=== PATIENT | male | born 1975 | race Hispanic/Latino ===

== ENCOUNTER 2021-10-20 14:28 | Emergency (ER) | payer OTHER ==
[~2021-10-20] VITALS: Ht 170.2 cm; Wt 83.9 kg
[2021-10-20] MEDS ORDERED: Morphine 4mg INJECTION 4 MG/ML INJ IM ONE (17:15)
[2021-10-20] MEDS ORDERED: CEFDINIR 300 MG CAP PO SCH (17:45)
[2021-10-20 18:21] LABS: CLARITY,URINE SL CLOUDY (CLEAR); COLOR,URINE STRAW (YELLOW); KETONES,URINE NEGATIVE (NEGATIVE); LEUKOCYTE ESTERASE ,URINE MODERATE (NEGATIVE); NITRITE,URINE POSITIVE (NEGATIVE); PROTEIN,URINE DIPSTICK 1+ (NEGATIVE); URINE UROBILINOGEN 0.2 mg/dL (0.2 - 1)
[2021-10-20 18:32] LABS: BACTERIA,URINE MODERATE /HPF; WBC,URINE (MAN) 21-50 /HPF (0-5)
[2021-10-20 19:53] VITALS: BP 132/76
== END 2021-10-20 19:55 | disposition home or self-care (01) ==
LOC: ER 15:22
DX: R33.9 Retention of urine, unspecified (principal); T83.518A Infection and inflammatory reaction due to other urinary catheter, initial encounter; L89.892 Pressure ulcer of other site, stage 2; G83.89 Other specified paralytic syndromes
CPT/HCPCS: 51702; 81001; 87086; 87186; 99283; J2270; 51700; 99282

== ENCOUNTER 2024-08-13 10:16 | Inpatient (IN) | payer OTHER ==
[~2024-08-13] VITALS: Ht 172.7 cm; Wt 68.3 kg
[2024-08-13] VITALS (7 sets, daily range): BP systolic 119–144; BP diastolic 76–84; PULSE 86–95; RESP 16–24; TEMP 97.3–98.7; O2SAT 95–100
[~2024-08-13 10:16] MED LIST: CLINDAMYCIN HC150 MG PO
[2024-08-13 11:31] LABS: BASOPHILS % 0.5 % (0.0-1.0); EOSINOPHILS # (AUTO) 0.5 (0.0-0.4); EOSINOPHILS % 6.1 % (0.0-6.0); HEMATOCRIT 29.3 % (38.2-49.6); HEMOGLOBIN 8.6 g/dL (14.0-18.0); LYMPHOCYTES # (AUTO) 0.9 (1.0-3.2); LYMPHOCYTES % 10.8 % (18.0-39.1); MEAN CORPUSCULAR HEMOGLOBIN 24.2 pg (28-32); MEAN CORPUSCULAR HGB CONC 29.4 g/dL (31-35); MEAN CORPUSCULAR VOLUME 82.3 fL (81-99); MONOCYTES # (AUTO) 0.5 (0.2-0.8); MONOCYTES % 6.1 % (4.4-11.3); NEUTROPHILS # (AUTO) 6.4 (2.1-6.9); NEUTROPHILS % 76.3 % (38.7-80.0); PLATELET COUNT 210 x10e3/uL (140-360); RED BLOOD COUNT 3.56 x10e6/uL (4.3-5.7); RED CELL DISTRIBUTION WIDTH 19.3 % (11.7-14.4); WHITE BLOOD COUNT 8.39 x10e3/uL (4.8-10.8)
[2024-08-13 11:47] LABS: PARTIAL THROMBOPLASTIN TIME 33.6 seconds (23.8-35.5)
[2024-08-13 11:50] LABS: INR 1.09; PROTHROMBIN TIME 14.8 seconds (11.9-14.5)
[2024-08-13 11:58] LABS: ACETAMINOPHEN < 3.0 ug/mL (10-30); ALBUMIN/GLOBULIN RATIO 0.7 (0.8-2.0); ANION GAP 15.3 mmol/L (8-16); BILIRUBIN,TOTAL 1.4 mg/dL (0.2-1.2); CALCIUM 8.3 mg/dL (8.4-10.2); CREATININE, SERUM 0.9 mg/dL (0.72-1.25); ETHANOL < 10.0 mg/dL (0.0-10.0); POTASSIUM 4.3 mmol/L (3.5-5.1); SALICYLATE < 5.0 mg/dL (0-30); TOTAL PROTEIN 7.6 g/dL (6.5-8.1)
[2024-08-13 12:04] LABS: TROPONIN I 0.026 ng/mL (0-0.300)
[2024-08-13 12:19] LABS: BILIRUBIN,URINE NEGATIVE (NEGATIVE); CLARITY,URINE CLEAR (CLEAR); COLOR,URINE YELLOW (YELLOW); GLUCOSE, URINE NEGATIVE (NEGATIVE); KETONES,URINE NEGATIVE (NEGATIVE); LEUKOCYTE ESTERASE ,URINE TRACE (NEGATIVE); NITRITE,URINE NEGATIVE (NEGATIVE); PH,URINE 6 (5 - 7); PROTEIN,URINE DIPSTICK NEGATIVE (NEGATIVE); URINE UROBILINOGEN 0.2 mg/dL (0.2 - 1)
[2024-08-13 12:31] LABS: AMPHETAMINES SCREEN,URINE POSITIVE (NEGATIVE); BENZODIAZEPINES SCREEN,URINE POSITIVE (NEGATIVE); OPIATES SCREEN,URINE NEGATIVE (NEGATIVE); PHENCYCLIDINE SCREEN,URINE NEGATIVE (NEGATIVE)
[2024-08-13 12:32] LABS: CANNABINOIDS SCREEN,URINE NEGATIVE (NEGATIVE); COCAINE SCREEN,URINE POSITIVE (NEGATIVE); CORONAVIRUS COVID-19 AG NEGATIVE (NEGATIVE); INFLUENZA A AG NEGATIVE (NEGATIVE); INFLUENZA B AG NEGATIVE (NEGATIVE); METHADONE SCREEN, URINE NEGATIVE (NEGATIVE)
[2024-08-13 12:33] LABS: BACTERIA,URINE RARE /HPF; EPITHELIAL CELLS,URINE RARE /LPF; RBC,URINE 0-5 /HPF (0-5); WBC,URINE (MAN) 0-5 /HPF (0-5)
[2024-08-13] MEDS: Vancomycin IV 1 GM in SODIUM CHLORIDE 0.9% 250ML 250 ML IV ONE (14:17)
[2024-08-13] MEDS ORDERED: PIPERACILLIN/TAZOBACTAM 3.375 GM VIAL ONE (14:23)
[2024-08-13] MEDS: SODIUM CHLORIDE 0.9% 500ML 500 ML IV ONE (14:36)
[2024-08-13] MEDS: ONDANSETRON HCL INJ 2MG/ML 2ML 2 MG/ML VIAL IV PRN (14:36)
[2024-08-13] MEDS: KETOROLAC TROMETHAMINE 30 MG/ML VIAL IV STA (17:56)
[2024-08-13] MEDS: Morphine 4mg INJECTION 4 MG/ML INJ IV PRN (22:32)
[2024-08-14] VITALS (9 sets, daily range): BP systolic 102–141; BP diastolic 76–93; PULSE 89–98; RESP 17–22; TEMP 97.5–98.1; O2SAT 95–100
[2024-08-14] MEDS: VANCOMYCIN 1.25GM/250 ML (PEG) 250 ML IV SCH (02:46)
[2024-08-14 04:38] LABS: BASOPHILS % 0.3 % (0.0-1.0); EOSINOPHILS # (AUTO) 0.4 (0.0-0.4); EOSINOPHILS % 5.6 % (0.0-6.0); HEMATOCRIT 23.2 % (38.2-49.6); LYMPHOCYTES # (AUTO) 1.5 (1.0-3.2); MEAN CORPUSCULAR HEMOGLOBIN 24.6 pg (28-32); MEAN CORPUSCULAR HGB CONC 29.3 g/dL (31-35); MEAN CORPUSCULAR VOLUME 84.1 fL (81-99); MONOCYTES # (AUTO) 0.3 (0.2-0.8); MONOCYTES % 4.2 % (4.4-11.3); NEUTROPHILS # (AUTO) 4.8 (2.1-6.9); NEUTROPHILS % 68.5 % (38.7-80.0); PLATELET COUNT 133 x10e3/uL (140-360); RED BLOOD COUNT 2.76 x10e6/uL (4.3-5.7); WHITE BLOOD COUNT 6.95 x10e3/uL (4.8-10.8)
[2024-08-14 04:59] LABS: MAGNESIUM 1.6 MG/DL (1.3-2.1)
[2024-08-14 05:01] LABS: ALBUMIN 2.3 g/dL (3.5-5.0); ALBUMIN/GLOBULIN RATIO 0.7 (0.8-2.0); ANION GAP 10.7 mmol/L (8-16); CREATININE, SERUM 0.8 mg/dL (0.72-1.25); POTASSIUM 3.7 mmol/L (3.5-5.1); TOTAL PROTEIN 5.6 g/dL (6.5-8.1)
[2024-08-14 05:13] LABS: HEMOGLOBIN 6.8 g/dL (14.0-18.0)
[2024-08-14 05:20] LABS: CALCIUM 6.6 mg/dL (8.4-10.2)
[2024-08-14 05:21] LABS: FERRITIN 28.18 ng/mL (21.81-274.66)
[2024-08-14 06:00] LABS: TROPONIN I 0.022 ng/mL (0-0.300)
[2024-08-14 07:25] LABS: BASOPHILS % 0.4 % (0.0-1.0); EOSINOPHILS # (AUTO) 0.4 (0.0-0.4); EOSINOPHILS % 5.5 % (0.0-6.0); HEMATOCRIT 23.6 % (38.2-49.6); LYMPHOCYTES # (AUTO) 0.9 (1.0-3.2); LYMPHOCYTES % 12.4 % (18.0-39.1); MEAN CORPUSCULAR HEMOGLOBIN 24.3 pg (28-32); MEAN CORPUSCULAR HGB CONC 29.2 g/dL (31-35); MEAN CORPUSCULAR VOLUME 83.1 fL (81-99); MONOCYTES # (AUTO) 0.4 (0.2-0.8); MONOCYTES % 5.8 % (4.4-11.3); NEUTROPHILS # (AUTO) 5.3 (2.1-6.9); NEUTROPHILS % 75.3 % (38.7-80.0); PLATELET COUNT 149 x10e3/uL (140-360); RED BLOOD COUNT 2.84 x10e6/uL (4.3-5.7); WHITE BLOOD COUNT 7.04 x10e3/uL (4.8-10.8)
[2024-08-14 07:39] LABS: HEMOGLOBIN 6.9 g/dL (14.0-18.0)
[2024-08-14] MEDS: CALCIUM GLUC 1 G/50 ML NACL 50 ML IV ONE (08:38)
[2024-08-14 09:14] LABS: EOSINOPHILS % (MANUAL) 3 % (0-7); LYMPHOCYTES % (MANUAL) 8 % (19-48); MONOCYTES % (MANUAL) 4 % (3.4-9.0); NEUTROPHILS % (MANUAL) 85 % (40-74)
[2024-08-14 09:15] LABS: ANISOCYTOSIS MODERATE; HYPOCHROMASIA MODERATE; OVALOCYTES FEW; PLATELET ESTIMATE SLIGHTLY DECREASED; PLATELET MORPHOLOGY COMMENT NORMAL
[2024-08-14 09:16] LABS: MICROCYTOSIS MODERATE; RBC MORPHOLOGY COMMENT ABNORMAL
[2024-08-14] MEDS: ALBUTEROL/IPRATROPIUM 3 ML NEB NEB PRN (10:27)
[2024-08-14] MEDS: KETOROLAC TROMETHAMINE 30 MG/ML VIAL IV PRN (11:57)
[2024-08-14] MEDS: SODIUM CHLORIDE 0.9% 250ML 250 ML ONE (12:07)
[2024-08-14 14:27] LABS: TROPONIN I 0.019 ng/mL (0-0.300)
[2024-08-14] MEDS ORDERED: BISACODYL 10 MG SUPP PR PRN (19:45)
[2024-08-14] MEDS ORDERED: POLYETHYLENE GLYCOL 3350 17 GM PACK PO PRN (19:45)
[2024-08-14] MEDS: Vancomycin IV 1 GM in SODIUM CHLORIDE 0.9% 250ML 250 ML IV SCH (20:20)
[2024-08-14] MEDS: FUROSEMIDE INJ 10 MG/ML 4 ML VIAL IV ONE (23:14)
[2024-08-14] MEDS: GUAIFENESIN/DEXTROMETHORPHAN LIQD 5 ML UDC NG PRN (23:14)
[2024-08-14] MEDS: WATER STERILE 10 ML VIAL IV ONE (23:14)
[2024-08-14] MEDS: ALTEPLASE RECOMBINANT 2 MG/2 ML VIAL IV PRN (23:14)
[2024-08-15] VITALS (11 sets, daily range): BP systolic 112–126; BP diastolic 70–96; PULSE 87–97; RESP 18–22; TEMP 97.5–98.2; O2SAT 96–100
[2024-08-15 06:06] LABS: BASOPHILS % 0.7 % (0.0-1.0); EOSINOPHILS # (AUTO) 0.5 (0.0-0.4); EOSINOPHILS % 8.7 % (0.0-6.0); HEMATOCRIT 26.4 % (38.2-49.6); HEMOGLOBIN 7.8 g/dL (14.0-18.0); LYMPHOCYTES # (AUTO) 0.8 (1.0-3.2); MEAN CORPUSCULAR HEMOGLOBIN 24.8 pg (28-32); MEAN CORPUSCULAR HGB CONC 29.5 g/dL (31-35); MEAN CORPUSCULAR VOLUME 83.8 fL (81-99); MONOCYTES # (AUTO) 0.5 (0.2-0.8); MONOCYTES % 7.5 % (4.4-11.3); NEUTROPHILS # (AUTO) 4.1 (2.1-6.9); NEUTROPHILS % 68.8 % (38.7-80.0); PLATELET COUNT 145 x10e3/uL (140-360); RED BLOOD COUNT 3.15 x10e6/uL (4.3-5.7); RED CELL DISTRIBUTION WIDTH 18.7 % (11.7-14.4); WHITE BLOOD COUNT 5.99 x10e3/uL (4.8-10.8)
[2024-08-15 06:32] LABS: ALBUMIN 1.7 g/dL (3.5-5.0); ALBUMIN/GLOBULIN RATIO 0.6 (0.8-2.0); BILIRUBIN,TOTAL 1.1 mg/dL (0.2-1.2); CREATININE, SERUM 0.73 mg/dL (0.72-1.25); TOTAL PROTEIN 4.6 g/dL (6.5-8.1)
[2024-08-15 06:57] LABS: MAGNESIUM 1.2 MG/DL (1.3-2.1)
[2024-08-15 07:01] LABS: ANION GAP 16.7 mmol/L (8-16)
[2024-08-15 07:05] LABS: POTASSIUM 2.7 mmol/L (3.5-5.1)
[2024-08-15 07:06] LABS: CALCIUM 5.1 mg/dL (8.4-10.2)
[2024-08-15] MEDS: POTASSIUM CHLORIDE 20 MEQ TAB CR PO ONE ×2 (08:44→11:14)
[2024-08-15] MEDS: CALCIUM CARBONATE 500 MG CHEWABLE TABS PO SCH (08:44)
[2024-08-15] MEDS: FUROSEMIDE INJ 10 MG/ML 4 ML VIAL IV SCH (09:30)
[2024-08-15] MEDS: DOCUSATE SODIUM 100 MG CAP PO SCH (09:31)
[2024-08-15] MEDS: SENNOSIDES 8.6 MG TAB PO SCH (09:31)
[2024-08-15] MEDS: LORAZEPAM 0.5 MG TAB PO PRN (11:14)
[2024-08-15] MEDS: MAGNESIUM SULFATE 2GM/50ML 50 ML IV SCH (12:15)
[2024-08-15 17:55] LABS: CALCIUM IONIZED 1.2 mmol/L (1.09-1.30)
[2024-08-15 18:03] LABS: POTASSIUM 5.1 mmol/L (3.5-5.1)
[2024-08-16 06:38] LABS: BASOPHILS % 0.2 % (0.0-1.0); EOSINOPHILS # (AUTO) 0.5 (0.0-0.4); EOSINOPHILS % 9.9 % (0.0-6.0); HEMATOCRIT 27.5 % (38.2-49.6); HEMOGLOBIN 8.3 g/dL (14.0-18.0); LYMPHOCYTES # (AUTO) 0.7 (1.0-3.2); LYMPHOCYTES % 12.5 % (18.0-39.1); MEAN CORPUSCULAR HGB CONC 30.2 g/dL (31-35); MEAN CORPUSCULAR VOLUME 82.8 fL (81-99); MONOCYTES # (AUTO) 0.4 (0.2-0.8); MONOCYTES % 7.9 % (4.4-11.3); NEUTROPHILS # (AUTO) 3.8 (2.1-6.9); NEUTROPHILS % 69.1 % (38.7-80.0); PLATELET COUNT 153 x10e3/uL (140-360); RED BLOOD COUNT 3.32 x10e6/uL (4.3-5.7); RED CELL DISTRIBUTION WIDTH 18.9 % (11.7-14.4); WHITE BLOOD COUNT 5.45 x10e3/uL (4.8-10.8)
[2024-08-16 07:03] LABS: ALBUMIN 2.6 g/dL (3.5-5.0); ALBUMIN/GLOBULIN RATIO 0.6 (0.8-2.0); ANION GAP 13.5 mmol/L (8-16); BILIRUBIN,TOTAL 1.1 mg/dL (0.2-1.2); CALCIUM 7.8 mg/dL (8.4-10.2); CREATININE, SERUM 1.29 mg/dL (0.72-1.25); MAGNESIUM 2.2 MG/DL (1.3-2.1); POTASSIUM 4.5 mmol/L (3.5-5.1); TOTAL PROTEIN 6.9 g/dL (6.5-8.1)
[2024-08-16 08:00] VITALS: BP 124/72; PULSE 78; RESP 17; TEMP 98.2; O2SAT 98
[2024-08-16 09:06] VITALS: PULSE 89; RESP 18; O2SAT 100
[2024-08-16 09:47] VITALS: BP 124/72; PULSE 89; RESP 18; TEMP 98.2; O2SAT 100
[2024-08-16 12:57] LABS: BILIRUBIN,URINE NEGATIVE (NEGATIVE); CLARITY,URINE CLEAR (CLEAR); COLOR,URINE COLORLESS (YELLOW); GLUCOSE, URINE NEGATIVE (NEGATIVE); KETONES,URINE NEGATIVE (NEGATIVE); LEUKOCYTE ESTERASE ,URINE SMALL (NEGATIVE); NITRITE,URINE NEGATIVE (NEGATIVE); PH,URINE 5.5 (5 - 7); PROTEIN,URINE DIPSTICK NEGATIVE (NEGATIVE); URINE UROBILINOGEN 0.2 mg/dL (0.2 - 1)
[2024-08-16 13:27] LABS: BACTERIA,URINE RARE /HPF; EPITHELIAL CELLS,URINE RARE /LPF; MUCUS,URINE FEW
[2024-08-16 15:27] VITALS: BP 120/88; PULSE 90; RESP 20; TEMP 98.3; O2SAT 100
[2024-08-16 20:00] VITALS: BP 120/72; PULSE 91; RESP 19; TEMP 97.4; O2SAT 100
[2024-08-16 21:00] VITALS: BP 120/73; PULSE 91; RESP 19; TEMP 97.4; O2SAT 100
[2024-08-17] VITALS (11 sets, daily range): BP systolic 114–128; BP diastolic 72–90; PULSE 85–101; RESP 16–20; TEMP 97.3–98.5; O2SAT 97–100
[2024-08-17 05:02] LABS: BASOPHILS % 0.3 % (0.0-1.0); EOSINOPHILS # (AUTO) 0.5 (0.0-0.4); EOSINOPHILS % 9.1 % (0.0-6.0); HEMATOCRIT 27.6 % (38.2-49.6); HEMOGLOBIN 8.2 g/dL (14.0-18.0); LYMPHOCYTES # (AUTO) 0.9 (1.0-3.2); LYMPHOCYTES % 15.1 % (18.0-39.1); MEAN CORPUSCULAR HEMOGLOBIN 24.8 pg (28-32); MEAN CORPUSCULAR HGB CONC 29.7 g/dL (31-35); MEAN CORPUSCULAR VOLUME 83.6 fL (81-99); MONOCYTES # (AUTO) 0.5 (0.2-0.8); MONOCYTES % 7.9 % (4.4-11.3); NEUTROPHILS # (AUTO) 3.9 (2.1-6.9); NEUTROPHILS % 67.3 % (38.7-80.0); PLATELET COUNT 170 x10e3/uL (140-360); RED CELL DISTRIBUTION WIDTH 19.4 % (11.7-14.4); WHITE BLOOD COUNT 5.83 x10e3/uL (4.8-10.8)
[2024-08-17 05:46] LABS: ANION GAP 13.4 mmol/L (8-16); CALCIUM 8.2 mg/dL (8.4-10.2); CREATININE, SERUM 1.44 mg/dL (0.72-1.25); POTASSIUM 4.4 mmol/L (3.5-5.1)
[2024-08-17] MEDS: SODIUM CHLORIDE 0.9% 500ML 500 ML IV ONE (11:48)
[2024-08-18 02:10] LABS: BASOPHILS % 0.4 % (0.0-1.0); EOSINOPHILS # (AUTO) 0.5 (0.0-0.4); EOSINOPHILS % 8.6 % (0.0-6.0); HEMATOCRIT 26.9 % (38.2-49.6); LYMPHOCYTES # (AUTO) 0.8 (1.0-3.2); LYMPHOCYTES % 16.1 % (18.0-39.1); MEAN CORPUSCULAR HEMOGLOBIN 24.8 pg (28-32); MEAN CORPUSCULAR HGB CONC 29.7 g/dL (31-35); MEAN CORPUSCULAR VOLUME 83.5 fL (81-99); MONOCYTES # (AUTO) 0.5 (0.2-0.8); MONOCYTES % 9.8 % (4.4-11.3); NEUTROPHILS # (AUTO) 3.4 (2.1-6.9); NEUTROPHILS % 64.9 % (38.7-80.0); PLATELET COUNT 185 x10e3/uL (140-360); RED BLOOD COUNT 3.22 x10e6/uL (4.3-5.7); RED CELL DISTRIBUTION WIDTH 19.7 % (11.7-14.4); WHITE BLOOD COUNT 5.22 x10e3/uL (4.8-10.8)
[2024-08-18 02:39] LABS: ALBUMIN 2.7 g/dL (3.5-5.0); ALBUMIN/GLOBULIN RATIO 0.7 (0.8-2.0); ANION GAP 13.2 mmol/L (8-16); BILIRUBIN,TOTAL 0.9 mg/dL (0.2-1.2); CALCIUM 8.2 mg/dL (8.4-10.2); CREATININE, SERUM 1.29 mg/dL (0.72-1.25); MAGNESIUM 1.8 MG/DL (1.3-2.1); POTASSIUM 4.2 mmol/L (3.5-5.1); TOTAL PROTEIN 6.8 g/dL (6.5-8.1)
[2024-08-18 07:29] VITALS: PULSE 84; RESP 18; O2SAT 98
[2024-08-18 07:49] LABS: ABG HCO3 22 mmol/L (22-26); ABG PCO2 51 mmHg (35-45); ABG PH 7.24 (7.35-7.45); ABG PO2 47 mmHg (80-105); ABG TCO2 23
[2024-08-18 09:00] VITALS: BP 128/90; PULSE 84; RESP 18; TEMP 98.5; O2SAT 98
[2024-08-18 11:54] VITALS: BP 119/84; PULSE 86; RESP 19; TEMP 98.2; O2SAT 99
[2024-08-18 13:26] VITALS: PULSE 80; RESP 18; O2SAT 97
[2024-08-18] MEDS ORDERED: CEFDINIR300 MG PO (14:53)
[2024-08-18] MEDS ORDERED: DOXYCYCLINE HY100 MG PO (14:53)
[2024-08-18 16:00] VITALS: BP 141/95; PULSE 89; RESP 21; TEMP 97.7; O2SAT 96
== END 2024-08-18 18:46 | disposition home health service (06) | DRG 539 ==
LOC: ER 10:23 → ERHOLD 13:59 → MED/SURG2 16:15
PROVIDERS: ADMIT Internal Medicine; ATTEND Internal Medicine
PROC: 06H033Z Insertion of Infusion Device into Inferior Vena Cava, Percutaneous Approach (ICD-10-PCS; 2024-08-13)
PROC: 30233N1 Transfusion of Nonautologous Red Blood Cells into Peripheral Vein, Percutaneous Approach (ICD-10-PCS; 2024-08-14)
PROC: 4A033R1 Measurement of Arterial Saturation, Peripheral, Percutaneous Approach (ICD-10-PCS; principal; 2024-08-15)
DX: M86.651 Other chronic osteomyelitis, right thigh (principal); L89.314 Pressure ulcer of right buttock, stage 4; L89.324 Pressure ulcer of left buttock, stage 4; I50.22 Chronic systolic (congestive) heart failure; L03.115 Cellulitis of right lower limb; L03.116 Cellulitis of left lower limb; G82.22 Paraplegia, incomplete; L97.528 Non-pressure chronic ulcer of other part of left foot with other specified severity; L97.518 Non-pressure chronic ulcer of other part of right foot with other specified severity; M86.652 Other chronic osteomyelitis, left thigh; R62.7 Adult failure to thrive; B87.0 Cutaneous myiasis; Z11.52 Encounter for screening for COVID-19; D64.9 Anemia, unspecified; R31.29 Other microscopic hematuria; E87.70 Fluid overload, unspecified; R46.0 Very low level of personal hygiene; M15.9 Polyosteoarthritis, unspecified; G47.33 Obstructive sleep apnea (adult) (pediatric); R53.81 Other malaise; R33.9 Retention of urine, unspecified; N31.9 Neuromuscular dysfunction of bladder, unspecified; F14.10 Cocaine abuse, uncomplicated; F13.10 Sedative, hypnotic or anxiolytic abuse, uncomplicated; F15.10 Other stimulant abuse, uncomplicated; F12.10 Cannabis abuse, uncomplicated; Z89.412 Acquired absence of left great toe; Z89.411 Acquired absence of right great toe; Z89.421 Acquired absence of other right toe(s); Z89.422 Acquired absence of other left toe(s); W34.00XS Accidental discharge from unspecified firearms or gun, sequela; Z93.51 Cutaneous-vesicostomy status; Z74.01 Bed confinement status; F17.210 Nicotine dependence, cigarettes, uncomplicated
CPT/HCPCS: 36415; 36569; 70450; 71045; 71250; 72125; 74176; 80048; 80053; 80202; 80307; 80320; 80329; 81001; 82550; 82607; 82728; 82746; 82805; 83540; 83735; 83880; 84132; 84466; 84484; 85025; 85610; 85730; 86850; 86900; 86920; 87040; 87086; 93005; 93306; 93925; 94640; 94799; 99252; 99285; J1885; J1938; J2270; J2405; J2470; J2543; J2997; J3475; J7040; J7050; P9016